=== PATIENT | female | born 1990 | race Caucasian/White ===

== ENCOUNTER 2017-05-04 16:35 | Inpatient (IN) | payer OTHER ==
[2017-05-04] MEDS: DEXTROSE 5%-LACTATED RINGERS 1,000 ML IV SCH (20:15)
[2017-05-04 20:37] LABS: BASOPHIL 0.3 % (0-2.0); EOSINOPHIL 0.1 % (0-4.5); MCH 26.2 pg (25.7-33.7); MCHC 31.9 g/dl (32.0-36.0); MEAN CELL VOLUME 82.4 fl (80-96); MEAN PLT VOLUME 10.4 fl (7.5-11.1); NEUTROPHILS 82.7 % (42.8-82.8); PLATELET COUNT 236 K/MM3 (134-434); RDW 13.6 % (11.6-15.6)
[2017-05-04 20:41] VITALS: BMI 37.4
[2017-05-04] MEDS ORDERED: BUTORPHANOL TARTRATE 1 MG/ML VIAL IVPUSH ONE (20:44)
[2017-05-04 20:49] LABS: INR 0.98 (0.82-1.09); PROTHROMBIN TIME (PATIENT) 10.8 SEC (9.98-11.88)
[2017-05-04 20:52] LABS: ACTIVATED PTT 25.4 SECONDS (26.9-34.4)
--- NOTE | 2017-05-04 20:54 | HP ---
Past Medical History - Primary Care Physician PCP:: Del Stern - Admission Chief Complaint: 39 weeks, rom, labor History of Present Illness: 27 yo f , 41 weeks, c/o leaking clear fluid since pm , clear contraction irregular since this am, cx 1 cm, 80 vx -3 mr, clear , contractio q 3 to 4 min , strong History Source: Patient Limitations to Obtaining History: No Limitations - Past Medical History ...: 1 ...Para: 0 ...Term: 0 ...: 0 ...Spon : 0 ...Induced : 0 ...LMP: 07/21/16 ... Weeks Gestation by Dates: 41 ...EDC by Dates: 04/27/17 ...EDC by Sono: 05/02/17 - Past Surgical History Hx Myomectomy: No Hx Transabdominal Cerclage: No - Smoking History Smoking history: Never smoked Have you smoked in the past 12 months: No - Alcohol/Substance Use Hx Alcohol Use: No - Social History Usual Living Arrangement: Yes: With Spouse History of Recent Travel: No Home Medications - Allergies Allergies/Adverse Reactions: Allergies Allergy/AdvReac Type Severity Reaction Status Date / Time No Known Allergies Allergy Verified 05/04/17 19:08 - Home Medications Home Medications: Ambulatory Orders NK [No Known Home Medication] 05/04/17 Review of Systems - Review of Systems Constitutional: reports: No Symptoms Eyes: reports: No Symptoms HENT: reports: No Symptoms Neck: reports: No Symptoms Cardiovascular: reports: No Symptoms Respiratory: reports: No Symptoms Gastrointestinal: reports: No Symptoms Genitourinary: reports: No Symptoms Breasts: reports: No Symptoms Reported Musculoskeletal: reports: No Symptoms Integumentary: reports: No Symptoms Neurological: reports: No Symptoms Endocrine: reports: No Symptoms Hematology/Lymphatic: reports: No Symptoms Pain Intensity: 7 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 - Maternity Vital Signs: Vital Signs Temperature 98.2 F 05/04/17 19:55 Pulse Rate 78 05/04/17 19:55 Respiratory Rate 18 05/04/17 19:55 Blood Pressure 124/79 05/04/17 19:55 O2 Sat by Pulse Oximetry (%) Constitutional: Yes: Obese Eyes: Yes: WNL HENT: Yes: WNL Neck: Yes: WNL Cardiovascular: Yes: WNL Breast(s): Yes: WNL - Abdominal Exam/OB Fundal Height: 40 Number of Fetuses: Single Presentation: Vertex Contractions: Yes Regularity: Irregular Intensity: Mod/Strong Monitor Mode: External Heart Rate Location: [facility] Category: I Accelerations: Uniform Decelerations: None - Vaginal Exam/OB Vaginal Bleediing: Bloody Show Speculum Exam: No Dilatation (cm): 1 cm Effacement (%): 80 Amniotic Membrane Status: Ruptured Nitrazine Test: Positive Amniotic Fluid: Yes: Clear Presentation: Vertex/Position Station: -3 - 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 Musculoskeletal: Yes: Back Pain Edema: Yes Edema: LLE: Trace, RLE: Trace Deep Tendon Reflex Grade: Normal +2 Psychiatric: Yes: WNL Hemorrhage Risk Assessment - Risk Factors High Risk Factors: Yes: None Risk Score: 0 Risk Level: Low Risk Problem List - Problems (1) with 41 completed weeks gestation Code(s): Z3A.41 - 41 WEEKS GESTATION OF (2) membrane rupture Code(s): SBX9169 - (3) Labor established Code(s): SNJ0060 - Assessment/Plan admit, fhm, pain management
[2017-05-04 21:01] LABS: COCKROFT - GAULT 229.6105; CREATININE 0.7 mg/dL (0.55-1.02)
[2017-05-04] MEDS ORDERED: TUBERCULIN PPD 5 TU/0.1ML SYRINGE (IN PATIENT USE ONLY) ID ONE (21:15)
[2017-05-05] MEDS: DEXTROSE 5%-LACTATED RINGERS 1,000 ML IV SCH ×2 (06:40)
[2017-05-05] MEDS ORDERED: AMPICILLIN - 2 GM in SODIUM CHLORIDE 100 ML IVPB ONE (07:26)
[2017-05-05] MEDS: ELECTROLYTE-148 SOLN 1,000 ML IV SCH ×3 (07:30→18:45)
--- NOTE | 2017-05-05 07:33 | PN ---
Progress Note (short form) - Note Progress Note: cx 5 cm, 100 vx -1 forbag intact, fhr cat 1, irregular contraction, Problem List - Problems (1) with 41 completed weeks gestation Code(s): Z3A.41 - 41 WEEKS GESTATION OF (2) membrane rupture Code(s): SIX5762 - (3) Labor established Code(s): VXP6959 -
[2017-05-05] MEDS ORDERED: FENTANYL/BUPIVACAINE/NS/PF - PCEA - 50 ML DISP.SYRIN EP SCH ×2 (08:30→08:33)
[2017-05-05] MEDS ORDERED: OXYTOCIN 15 UNITS/ LR 250 ML 250 ML IVPB SCH (09:00)
[2017-05-05] MEDS: AMPICILLIN - 1 GM in SODIUM CHLORIDE 100 ML IVPB SCH ×3 (11:30→19:30)
--- NOTE | 2017-05-05 11:31 | PN ---
Ante-Partal Exam - Subjective Subjective: Pt w/o complaints. She is s/p epidural and does not feel contractions. Vital Signs: Vital Signs Temperature 98.1 F 05/05/17 10:00 Pulse Rate 75 05/05/17 08:45 Respiratory Rate 20 05/05/17 08:45 Blood Pressure 109/61 05/05/17 08:45 O2 Sat by Pulse Oximetry (%) 100 05/05/17 08:28 Bleeding: No Headache: No Visual changes: No Right upper quadrant pain: No Pain (scale 1-10): 0 - Contractions Contractions: Yes (q3min) Regularity: Regular Intensity: Unaware Monitor Mode: External - Exam during Labor Heart Rate: 140 Variability: Moderate Heart Rate Location: Midline Category: I Monitor Accelerations: Present Monitor Decelerations: None Exam: Vaginal Dilatation (cm): 7 Effacement (%): 90 Amniotic Membrane Status: Ruptured (AROM of forebag with clear fluid) Amniotic Fluid: Clear Presentation: Vertex Station: -1 Remarks: EFW ~10lbs by Nile's maneuvers Adequate gynecoid pelvimetry. - Intrapartum Hemorrhage Risk Medium Risk Factors: None High Risk Factors: None Risk Score: 0 Risk Level: Low Risk - Assessment/Plan Assessment/Plan: 27yo P0 with at EGA 41wks admitted last night due to SROM in early latent labor. The pt's contractions are being augmented since 9am. The fetus with Category I tracing and does not require intervention. This appears to be LGA fetus, estimated at ~10lbs. The pt is not a diabetic. The pt has adequate gynecoid pelvimetry for this size fetus. However, we had a long discussion re: risks of labor and vaginal delivery. We discussed the risks of shoulder dystocia and inability to predict it, emergent nature, risks of severe and /or maternal trauma, etc. I offered the pt a primary section to avoid the risks of shoulder dystocia. The pt declined. She only agreed to C/S for either maternal or indication. We also discussed the risks of arrest of labor, uterine atony, hemorrhage, etc. The pt's sister and pt's were present for discussion. The sister translated for the . All wuestions were answered.
--- NOTE | 2017-05-05 18:45 | PN ---
Ante-Partal Exam - Subjective Subjective: Pt is pushing now, after a period to labor down. The epidural was turned off because the pt did not feel pressure or contractions. Vital Signs: Vital Signs Temperature 99.9 F H 05/05/17 17:26 Pulse Rate 108 H 05/05/17 18:00 Respiratory Rate 20 05/05/17 18:00 Blood Pressure 144/88 05/05/17 18:00 O2 Sat by Pulse Oximetry (%) 100 05/05/17 08:28 Bleeding: No Headache: No Visual changes: No Right upper quadrant pain: No Pain (scale 1-10): 10 - Contractions Contractions: Yes Regularity: Regular Intensity: Strong Monitor Mode: External - Exam during Labor Heart Rate: 135 Variability: Moderate Heart Rate Location: Midline Monitor Accelerations: Present Monitor Decelerations: Early Exam: Vaginal Dilatation (cm): 10 Effacement (%): 100 Amniotic Membrane Status: Leaking Presentation: Vertex Station: +2 - Intrapartum Hemorrhage Risk Medium Risk Factors: None High Risk Factors: None Risk Score: 0 Risk Level: Low Risk - Assessment/Plan Assessment/Plan: 27 yo P0 with second stage of labor. Fetus does not require intervention. LGA fetus anticipated. Shoulder dystocia precautions taken. Peds notified. Second MD on stand-by to assist, anesthesia notified. Pt has been pushing since ~5:45pm.
[2017-05-05] MEDS ORDERED: BENZOCAINE 28 GM HEMORRHOIDAL OINTMENT TP PRN (20:51)
[2017-05-05] MEDS ORDERED: METHYLERGONOVINE MALEATE 0.2 MG/1 ML AMP IM PRN (20:51)
[2017-05-05] MEDS ORDERED: ACETAMINOPHEN 325 MG TABLET (FP) PO PRN (20:51)
[2017-05-05] MEDS ORDERED: IBUPROFEN 600 MG TABLET (FP) PO PRN (20:51)
[2017-05-05] MEDS ORDERED: WITCH HAZEL 50% (TUCKS) 40 PAD/JAR PAD TP PRN (20:51)
[2017-05-05] MEDS ORDERED: BISACODYL 10 MG SUPP.RECT RC PRN (20:51)
[2017-05-05] MEDS ORDERED: BENZOCAINE 20% 57 GM BOTTLE TP PRN (20:51)
--- NOTE | 2017-05-05 20:58 | PN ---
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
[2017-05-05] MEDS ORDERED: BISACODYL 5 MG TABLET.DR (FP) PO PRN (21:00)
[2017-05-05] MEDS ORDERED: D5W-LR W/ 20 UNITS OXYTOCIN 1,000 ML IV SCH (21:00)
[2017-05-06] MEDS: FERROUS SO4 325 MG TABLET (FP) PO SCH ×3 (00:17→21:52)
[2017-05-06] MEDS: AMPICILLIN - 1 GM in SODIUM CHLORIDE 100 ML IVPB SCH (02:53)
[2017-05-06 08:49] LABS: BASOPHIL 0.4 % (0-2.0); EOSINOPHIL 0.3 % (0-4.5); MCHC 32.4 g/dl (32.0-36.0); MEAN CELL VOLUME 83.6 fl (80-96); MEAN PLT VOLUME 9.4 fl (7.5-11.1); NEUTROPHILS 78.3 % (42.8-82.8); PLATELET COUNT 193 K/MM3 (134-434); RDW 13.8 % (11.6-15.6); WHITE BLOOD COUNT 14.1 K/mm3 (4.0-10.0)
[2017-05-06] MEDS: PRENATAL VITAMINS W/ FOLIC ACID TABLET (FP) PO SCH (09:25)
--- NOTE | 2017-05-06 10:13 | PN ---
Post Progress Note - Subjective Subjective: 27 yo P1 now, s/p no complains Type of Delivery: Vital Signs: Vital Signs Temperature 97.8 F 05/06/17 02:51 Pulse Rate 78 05/06/17 02:51 Respiratory Rate 20 05/06/17 02:51 Blood Pressure 124/64 05/06/17 02:51 O2 Sat by Pulse Oximetry (%) 99 05/05/17 21:30 Breast Exam: Yes: Soft Uterus: Yes: Fundus Firm Abdomen/GI: Yes: Abdomen soft, Tolerating PO Lochia: Yes: Rubra Lochia, amount: Small Extremities: Yes: Calves non-tender Perineum: Yes: Laceration Activity: Ambulating - Labs Labs: CBC WBC 14.1 K/mm3 (4.0-10.0) H 05/06/17 08:36 RBC 3.24 M/mm3 (3.60-5.2) L 05/06/17 08:36 Hgb 8.8 GM/dL (10.7-15.3) L D 05/06/17 08:36 Hct 27.1 % (32.4-45.2) L D 05/06/17 08:36 MCV 83.6 fl (80-96) 05/06/17 08:36 MCHC 32.4 g/dl (32.0-36.0) 05/06/17 08:36 RDW 13.8 % (11.6-15.6) 05/06/17 08:36 Plt Count 193 K/MM3 (134-434) 05/06/17 08:36 MPV 9.4 fl (7.5-11.1) 05/06/17 08:36 Neutrophils % 78.3 % (42.8-82.8) 05/06/17 08:36 Lymphocytes % 13.0 % (8-40) D 05/06/17 08:36 Monocytes % 8.0 % (3.8-10.2) 05/06/17 08:36 Eosinophils % 0.3 % (0-4.5) D 05/06/17 08:36 Basophils % 0.4 % (0-2.0) 05/06/17 08:36 Assessment/Plan 27yo P1 s/p VSS, Afibrile Rh pos no need for RhoGam Baby boy - curcumcised Routine care cont Brat diet and Dulolax for 3rd degree laceration Plan to d/c tomorrow
[2017-05-06] MEDS: DEXTROSE 5%-LACTATED RINGERS 1,000 ML IV SCH (19:20)
[2017-05-06] MEDS ORDERED: SENNOSIDES/DOCUSATE COMBO (SENNA PLUS) TABLET (UD) PO PRN (22:00)
[2017-05-07 08:59] VITALS: BP 118/75; PULSE 89; TEMP 98.7
[2017-05-07] MEDS: FERROUS SO4 325 MG TABLET (FP) PO SCH (10:06)
[2017-05-07] MEDS: PRENATAL VITAMINS W/ FOLIC ACID TABLET (FP) PO SCH (10:06)
--- NOTE | 2017-05-07 13:36 | DS ---
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-GENERAL NEUROLOGIST Vital Signs: Vital Signs Temperature 98.7 F 05/07/17 08:10 Pulse Rate 89 05/07/17 08:10 Respiratory Rate 20 05/07/17 08:10 Blood Pressure 118/75 05/07/17 08:10 O2 Sat by Pulse Oximetry (%) 99 05/05/17 21:30 Constitutional: Yes: Well Nourished, No Distress, Calm Eyes: Yes: WNL, Conjunctiva Clear HENT: Yes: WNL, Atraumatic, Normocephalic Neck: Yes: WNL, Supple, Trachea Midline Cardiovascular: Yes: WNL, Regular Rate and Rhythm Respiratory: Yes: WNL, Regular, CTA Bilaterally Gastrointestinal: Yes: WNL, Normal Bowel Sounds, Soft Renal/: Yes: WNL ....Post : Yes: Uterus firm, Uterus non-tender, Slight lochia rubra Breast(s): Yes: WNL Musculoskeletal: Yes: WNL Extremities: Yes: WNL Edema: Yes Edema: LLE: 1+, RLE: 1+ Integumentary: Yes: WNL Wound/Incision: Yes: Clean/Dry (perineum), Well Approximated (perineum) Neurological: Yes: WNL, Alert, Oriented ...Motor Strength: WNL Psychiatric: Yes: WNL, Alert, Oriented Labs: CBC, BMP 05/06/17 08:36 05/04/17 20:10 Delivery - Delivery Vaginal Delivery: No Problems, Spontaneous Type of Anesthesia: Epidural Episiotomy/Laceration: Midline, Left Mediolateral, Right Mediolateral, Perineal Extension/lac, Vaginal Extension/lac, 3rd degree EBL (cc): 400 Delivery, Single - Stages of Labor Date 1st Stage Initiatied: 05/04/17 Time 1st Stage Initiated: 15:30 Date 2nd Stage Initiated: 05/05/17 Time 2nd Stage Initiated: 18:00 Date of Delivery: 05/05/17 Time of Delivery: 19:29 Time Placenta Delivered: 19:36 Placenta: Yes: Spontaneous, Normal Configuration - Condition of Infant 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 Present: Yes Name: Aurea Cartwright Infant Gender: Male Weight: 4.139 kg Position: Right, OA Total Hours ROM (Hrs/Mins): 27hrs/59minutes - 1 Minute Total Score: 9 5 Minutes Total Score: 9 - [place] Feeding Plan Initial Plan: Elected not to breastfeed exclusively throughout hospitalization Benefits of Exclusively reinforced: Yes Discharge Summary Reason For Visit: LABOR ADMIT Current Active Problems membrane rupture (Acute) Labor established (Acute) with 41 completed weeks gestation (Acute) Procedures: Principal: Other Procedures: Repair 3rd degree perineal laceration Hospital Course: Normal recovery Condition: Good - Instructions Diet, Activity, Other Instructions: Physical activity Resume your normal everyday activity as tolerated no heavy lifting or exercise until seen by your surgeon. You may walk unlimited rossy of and climb stairs. You may resume driving the car when you feel safe and comfortable behind the wheel. No sexual activity as instructed. Wound care If you have a bandage, leave it on, and keep dry for 48-72 hours. After that time discard the outer bandage. If they are tapes on the skin under the out of bandage leave them in place. They will peel off in the next 7 to 10 days. Do Not Peel them off. You may shower the day after surgery. If there are tapes present on the skin, you may shower over them. Diet There are no dietary restrictions. Eat healthy, high-fiber foods. Drink 6 to 8 glasses of liquid each day. This will assist in keeping your bowels are regular. Pain management You may take Tylenol or acetaminophen or Ibuprofen (for example, Motrin, Advil etc.) from my pain prescription medication is ordered should be taken as prescribed for moderate to severe pain. Call MD for any of the following: Severe pain not relieved by medication Fever of 101 or higher Excessive bleeding or drainage on dressing Inability to urinate Referrals: Bj Montiel MD [Staff Physician] - Disposition: HOME - Home Medications Comprehensive Discharge Medication List: Ambulatory Orders NK [No Known Home Medication] 05/04/17
== END 2017-05-07 14:00 | disposition home or self-care (01) | DRG 542 ==
LOC: JDEL 16:35 → JLDR 19:55 → J3W 05-05 23:35
PROVIDERS: ADMIT Obstetrics & Gynecology; ATTEND Obstetrics & Gynecology
PROC: 10E0XZZ Delivery of Products of Conception, External Approach (ICD-10-PCS; principal; 2017-05-05)
PROC: 0DQR0ZZ Repair Anal Sphincter, Open Approach (ICD-10-PCS; 2017-05-05)
DX: O48.0 Post-term pregnancy (principal); Z3A.41 41 weeks gestation of pregnancy; O70.20 Third degree perineal laceration during delivery, unspecified; Z37.0 Single live birth
CPT/HCPCS: 36415; 59409; 71020-TC; 80048; 85025; 85610; 85730; 86593; 86850; 86900; 86901

== ENCOUNTER 2020-08-11 08:56 | Inpatient (IN) | payer OTHER ==
[2020-08-11 09:40] LABS: BASO % 0.5 % (0-2.0); EOS % 0.1 % (0-4.5); HEMATOCRIT 36.6 % (32.4-45.2); HEMOGLOBIN 12.2 GM/dL (10.7-15.3); MCH 28.8 pg (25.7-33.7); MCHC 33.2 g/dl (32.0-36.0); MEAN CELL VOLUME 86.6 fl (80-96); MEAN PLT VOLUME 9.2 fl (7.5-11.1); NEUT % 81.4 % (42.8-82.8); PLATELET COUNT 206 K/MM3 (134-434); RBC 4.23 M/mm3 (3.60-5.2); RDW 13.7 % (11.6-15.6); WHITE BLOOD COUNT 15.9 K/mm3 (4.0-10.0)
[2020-08-11 09:47] LABS: INR 0.95 (0.83-1.09); PROTHROMBIN TIME (PATIENT) 11.2 SEC (9.7-13.0)
[2020-08-11 09:50] LABS: ACTIVATED PTT 27.7 SECONDS (25.2-36.5)
--- NOTE | 2020-08-11 09:53 | HP ---
Past Medical History - Primary Care Physician PCP:: Del Stern - Admission Chief Complaint: 38 weeks, labor - Past Surgical History Hx Myomectomy: No Hx Transabdominal Cerclage: No - Smoking History Smoking history: Never smoked Have you smoked in the past 12 months: No - Alcohol/Substance Use Hx Alcohol Use: No - Social History History of Recent Travel: No Home Medications - Allergies Allergies/Adverse Reactions: Allergies Allergy/AdvReac Type Severity Reaction Status Date / Time No Known Allergies Allergy Verified 05/04/17 19:08 - Home Medications Home Medications: Ambulatory Orders NK [No Known Home Medication] 05/04/17 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 - Maternity Constitutional: Yes: Well Nourished, No Distress, Calm Eyes: Yes: WNL, Conjunctiva Clear, EOM Intact HENT: Yes: WNL, Atraumatic, Normocephalic Neck: Yes: WNL, Supple, Trachea Midline Cardiovascular: Yes: WNL, Regular Rate and Rhythm Breast(s): Yes: WNL - Abdominal Exam/OB Fundal Height: 38 Number of Fetuses: Single Presentation: Vertex Contractions: Yes Regularity: Regular Intensity: Mod/Strong Monitor Mode: External Heart Rate Location: [facility] Category: I Accelerations: Non-Uniform Decelerations: None - Vaginal Exam/OB Vaginal Bleeding: Bloody Show Speculum Exam: No Dilatation (cm): 4 Effacement (%): 80 Presentation: Vertex/Position Station: -3 - 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 Musculoskeletal: Yes: WNL Extremities: Yes: WNL Edema: LLE: Trace, RLE: Trace Deep Tendon Reflex Grade: Normal +2 Psychiatric: Yes: WNL - Labs Lab Results: CBC, BMP 08/11/20 09:18 Hemorrhage Risk Assessment - Risk Factors Medium Risk Factors: Yes: None High Risk Factors: Yes: None Risk Score: 1 Risk Level: Medium Risk Problem List - Problems (1) with 38 completed weeks gestation Code(s): Z3A.38 - 38 WEEKS GESTATION OF (2) First stage of labor established Code(s): [id number] - Assessment/Plan admit m pain management
[2020-08-11] MEDS ORDERED: ELECTROLYTE-148 SOLN 1,000 ML IV SCH (10:00)
[2020-08-11 10:05] LABS: BLOOD UREA NITROGEN 5.2 mg/dL (7-18); CALCIUM 8.8 mg/dL (8.5-10.1); CREATININE 0.6 mg/dL (0.55-1.3)
[2020-08-11 10:36] VITALS: BMI 42.0
[2020-08-11] MEDS ORDERED: PCA PUMP NR ONE (11:15)
[2020-08-11] MEDS ORDERED: FENTANYL/BUPIVACAINE/NS/PF - PCEA - 50 ML DISP.SYRIN EP ONE (11:15)
[2020-08-11] MEDS ORDERED: OXYTOCIN 20 UNITS in 0.9% NS 20 UNIT/1,000 ML INFUS.BAG IV ONE ×2 (13:21→14:59)
[2020-08-11] MEDS ORDERED: ceFAZolin 2 GRAM PREMIX BAG IVPB ONE (14:00)
[2020-08-11] MEDS ORDERED: BENZOCAINE 20% 57 GM BOTTLE TP PRN (14:12)
[2020-08-11] MEDS ORDERED: BENZOCAINE 28 GM HEMORRHOIDAL OINTMENT TP PRN (14:12)
[2020-08-11] MEDS ORDERED: BISACODYL 10 MG SUPP.RECT RC PRN (14:12)
[2020-08-11] MEDS ORDERED: WITCH HAZEL 50% (TUCKS) 40 PAD/JAR PAD TP PRN (14:12)
[2020-08-11] MEDS ORDERED: METHYLERGONOVINE MALEATE 0.2 MG/1 ML AMP IM PRN (14:12)
[2020-08-11] MEDS ORDERED: METHYLERGONOVINE MALEATE 0.2 MG/1 ML AMP IM ONE (14:16)
--- NOTE | 2020-08-11 14:18 | PN ---
Progress Note (short form) - Note Progress Note: cx full 100 vx, 2+ station , fhr ct 1 regular contraction, SROM , mec. stain AF , wants to push Problem List - Problems (1) with 38 completed weeks gestation Code(s): Z3A.38 - 38 WEEKS GESTATION OF (2) First stage of labor established Code(s): [id number] -
[2020-08-11] MEDS ORDERED: PHENYLEPHRINE HCL 10 MG/1 ML SINGLE DOSE VIAL ONE (14:20)
--- NOTE | 2020-08-11 14:30 | PN ---
Delivery - Delivery Vaginal Delivery: Spontaneous Type of Anesthesia: Local (, no defect cx full , patient pushing ,while pushing and pernium streching, small hole see, at vaginal intertous over mucosa with stool coming out of hole , patient was notifed of posible presence ofrectovaginal fistulla prior to delvery , also timothy Lehman was made aware of finding , pernium was infiltrated with local anesthesia , RML episiotomy done , head delivered KENJI, no cord , ant. and post. shoulder with no difficulty, live baby boy , apgar9/9, placenta complete, rectal exam done to find defect but because of heavy vaginal bleeding connection coul mot be located . RML episiotomy repaired in 3 layes with 20 chromic , rectal exam good tone, no defect , patient and her was made aware of finding, ebl 500cc), Epidural Episiotomy/Laceration: Right Mediolateral Delivery, Single - [place] Feeding Plan Initial Plan: Elected not to breastfeed exclusively throughout hospitalization
[2020-08-11 14:39] LABS: CORD BASE EXCESS -8.8 mmol/L (0-2); CORD HCO3 18.6 mmHg (20-29); CORD PCO2 44.9 mmHg (30-78); CORD pH 7.234 (7.14-7.44)
[2020-08-11 14:42] LABS: CORD HCO3 23.7 mmHg (20-29); CORD PCO2 64.3 mmHg (30-78); CORD pH 7.185 (7.14-7.44)
[2020-08-11] MEDS ORDERED: CEFAZOLIN 2 GM/D5W 2 GM/50 ML ML IVPB ONE (14:55)
[2020-08-11] MEDS ORDERED: NALOXONE HCL 0.4 MG/ML VIAL IVPUSH PRN (16:21)
[2020-08-11] MEDS ORDERED: FENTANYL/BUPIVACAINE/NS/PF - PCEA - 50 ML DISP.SYRIN EP SCH (16:30)
[2020-08-11] MEDS ORDERED: ACETAMINOPHEN 325 MG TABLET (FP) ONE (17:52)
[2020-08-11] MEDS ORDERED: IBUPROFEN 600 MG TABLET (FP) PO ONE (17:52)
[2020-08-11] MEDS: FERROUS SO4 325 MG TABLET (FP) PO SCH (17:56)
[2020-08-11] MEDS: ACETAMINOPHEN 325 MG TABLET (FP) PO PRN (17:56)
[2020-08-11] MEDS: IBUPROFEN 600 MG TABLET (FP) PO PRN (17:57)
[2020-08-12] MEDS: FERROUS SO4 325 MG TABLET (FP) PO SCH ×2 (07:57→17:31)
[2020-08-12] MEDS: PRENATAL VITAMINS W/ FOLIC ACID TABLET (FP) PO SCH (09:27)
[2020-08-12 09:54] LABS: BASO % 0.1 % (0-2.0); EOS % 0.1 % (0-4.5); HEMATOCRIT 25.7 % (32.4-45.2); HEMOGLOBIN 8.4 GM/dL (10.7-15.3); LYMPH % 9.6 % (8-40); MCH 28.1 pg (25.7-33.7); MCHC 32.7 g/dl (32.0-36.0); MONO % 3.7 % (3.8-10.2); NEUT % 86.5 % (42.8-82.8); PLATELET COUNT 201 K/MM3 (134-434); RBC 2.99 M/mm3 (3.60-5.2); RDW 13.4 % (11.6-15.6); WHITE BLOOD COUNT 12.8 K/mm3 (4.0-10.0)
--- NOTE | 2020-08-12 11:36 | PN ---
Progress Note (short form) - Note Progress Note: ppd 1, doing well, no excess vaginal bleeding, voids ok, no dizziness CBC, BMP 08/12/20 09:15 08/11/20 09:18 Last Vital Signs Temp Pulse Resp BP Pulse Ox 98.0 F 115 H 20 112/67 100 08/12/20 10:00 08/12/20 10:00 08/12/20 10:00 08/12/20 10:00 08/11/20 21:00 uterus firm,non tender , no cva lochia minimal no calf tenderness impression anemia , no dizziness , no weakness , tachycardia will monitor pulse iron, vit repeat cbc in am Problem List - Problems (1) with 38 completed weeks gestation Code(s): Z3A.38 - 38 WEEKS GESTATION OF (2) First stage of labor established Code(s): [id number] -
[2020-08-12] MEDS: IBUPROFEN 600 MG TABLET (FP) PO PRN ×2 (12:35→22:44)
[2020-08-12] MEDS: ACETAMINOPHEN 325 MG TABLET (FP) PO PRN ×2 (12:35→22:44)
[2020-08-12] MEDS ORDERED: IBUPROFEN 600 MG TABLET (FP) PO ONE (12:37)
[2020-08-12] MEDS ORDERED: ACETAMINOPHEN 325 MG TABLET (FP) ONE ×2 (12:37→12:38)
[2020-08-12] MEDS ORDERED: SENNOSIDES/DOCUSATE COMBO (SENNA PLUS) TABLET (UD) PO PRN (22:00)
[2020-08-13 08:44] LABS: BASO % 0.3 % (0-2.0); EOS % 1.2 % (0-4.5); HEMATOCRIT 23.6 % (32.4-45.2); LYMPH % 16.1 % (8-40); MCH 29.5 pg (25.7-33.7); MCHC 33.9 g/dl (32.0-36.0); MEAN CELL VOLUME 86.9 fl (80-96); MONO % 7.2 % (3.8-10.2); NEUT % 75.2 % (42.8-82.8); PLATELET COUNT 185 K/MM3 (134-434); RBC 2.71 M/mm3 (3.60-5.2); RDW 13.5 % (11.6-15.6); WHITE BLOOD COUNT 7.8 K/mm3 (4.0-10.0)
[2020-08-13] MEDS: FERROUS SO4 325 MG TABLET (FP) PO SCH (08:54)
--- NOTE | 2020-08-13 09:17 | PN ---
Progress Note (short form) - Note Progress Note: ppd 2 ,no c/o , voids ok. no excess vaginal bleeding, no dizziness or chest pain, no SOB CBC, BMP 08/13/20 08:25 08/11/20 09:18 Last Vital Signs Temp Pulse Resp BP Pulse Ox 98.5 F 110 H 18 125/75 98 08/12/20 22:00 08/12/20 22:00 08/12/20 22:00 08/12/20 22:00 08/12/20 17:34 abdomen soft, no distension, no cva . uterus firm, non tender lochia minimal perineum clean , sutures intact impression anemia , advised iron, vit asymptomatic plan d/c home on po iron , PNV anemia precaution given Problem List - Problems (1) with 38 completed weeks gestation Code(s): Z3A.38 - 38 WEEKS GESTATION OF (2) First stage of labor established Code(s): [id number] -
--- NOTE | 2020-08-13 09:20 | DS ---
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 Signs: Vital Signs Temperature 98.5 F 08/12/20 22:00 Pulse Rate 110 H 08/12/20 22:00 Respiratory Rate 18 08/12/20 22:00 Blood Pressure 125/75 08/12/20 22:00 O2 Sat by Pulse Oximetry (%) 98 08/12/20 17:34 Constitutional: Yes: Well Nourished, No Distress, Calm Eyes: Yes: WNL, Conjunctiva Clear, EOM Intact HENT: Yes: WNL, Atraumatic, Normocephalic Neck: Yes: WNL, Supple, Trachea Midline Cardiovascular: Yes: WNL, Regular Rate and Rhythm Respiratory: Yes: WNL, Regular, CTA Bilaterally Gastrointestinal: Yes: WNL ...Rectal Exam: Yes: WNL Renal/: Yes: WNL ....Post : Yes: Uterus firm, Uterus non-tender, Slight lochia rubra Breast(s): Yes: WNL Musculoskeletal: Yes: WNL Extremities: Yes: WNL Edema: No Integumentary: Yes: WNL Neurological: Yes: WNL, Alert, Oriented ...Motor Strength: WNL Psychiatric: Yes: WNL, Alert, Oriented Labs: CBC, BMP 08/13/20 08:25 08/11/20 09:18 Delivery - Delivery Vaginal Delivery: Spontaneous Type of Anesthesia: Local, Epidural Episiotomy/Laceration: Right Mediolateral EBL (cc): 500 Delivery, Single - Stages of Labor Date 1st Stage Initiatied: 08/11/20 Time 1st Stage Initiated: 05:30 Date 2nd Stage Initiated: 08/11/20 Time 2nd Stage Initiated: 13:30 Date of Delivery: 08/11/20 Time of Delivery: 13:39 Time Placenta Delivered: 13:43 Placenta: Yes: Spontaneous - Condition of Screener Operator/Varnish 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 Present: No Infant Gender: Male Weight: 9 lb 7 oz Position: Left, OA Total Hours ROM (Hrs/Mins): [id number] - 1 Minute Total Score: 9 5 Minutes Total Score: 9 - Feeding Plan Initial Plan: Elected not to breastfeed exclusively throughout hospitalization Discharge Summary Problems reviewed: Yes Reason For Visit: ADMISSION OF LABOR Current Active Problems First stage of labor established (Acute) with 38 completed weeks gestation (Acute) Procedures: Principal: Other Procedures: RML episiotomy repair Health Concerns: anemia, R.V fistulla Condition: Good - Instructions Diet, Activity, Other Instructions: regular diet, no intercourse , follow up office 4 weeks, if fever, heavy vaginal bleeding, pain call md Referrals: Bj Montiel MD [Staff Physician] - Disposition: HOME - Home Medications Comprehensive Discharge Medication List: Ambulatory Orders Ibuprofen [Motrin -] 600 mg PO QID #28 tablet 08/11/20 Vitamins (Sjr) - 1 tab PO DAILY 08/11/20 Docusate Sodium [Colace -] 100 mg PO DAILY PRN #21 capsule 08/13/20
[2020-08-13 09:42] VITALS: BP 104/71; PULSE 93; TEMP 98.1
[2020-08-13] MEDS: PRENATAL VITAMINS W/ FOLIC ACID TABLET (FP) PO SCH (10:16)
[2020-08-15 08:58] LABS: POC NITRAZINE NEG
== END 2020-08-13 11:35 | disposition home or self-care (01) | DRG 560 ==
LOC: JLDR 08:56 → J3W 08-12 12:45
PROVIDERS: ADMIT Obstetrics & Gynecology; ATTEND Obstetrics & Gynecology
PROC: 10E0XZZ Delivery of Products of Conception, External Approach (ICD-10-PCS; principal; 2020-08-11)
PROC: 0W8NXZZ Division of Female Perineum, External Approach (ICD-10-PCS; 2020-08-11)
DX: O42.02 Full-term premature rupture of membranes, onset of labor within 24 hours of rupture (principal); Z3A.38 38 weeks gestation of pregnancy; Z37.0 Single live birth; O77.0 Labor and delivery complicated by meconium in amniotic fluid; O70.9 Perineal laceration during delivery, unspecified; O90.81 Anemia of the puerperium; D64.9 Anemia, unspecified; N82.3 Fistula of vagina to large intestine
CPT/HCPCS: 36415; 36600; 59409; 80048; 82803; 83986-QW; 85025; 85610; 85730; 86780; 86850; 86900; 86901; 87389; U0003